=== PATIENT | female | born 1995 | race Caucasian/White ===

== ENCOUNTER 2017-09-07 11:58 | Emergency (ER) | payer MEDICAID ==
[~2017-09-07] VITALS: Ht 157.5 cm; Wt 106.6 kg
[2017-09-07 12:16] VITALS: BP 139/85
== END 2017-09-07 12:58 | disposition home or self-care (01) ==
LOC: ED 12:52
DX: S63.521A Sprain of radiocarpal joint of right wrist, initial encounter (principal); X58.XXXA Exposure to other specified factors, initial encounter; Y93.89 Activity, other specified; Y99.8 Other external cause status; Y92.009 Unspecified place in unspecified non-institutional (private) residence as the place of occurrence of the external cause
CPT/HCPCS: 99284

== ENCOUNTER 2017-10-10 15:52 | Emergency (ER) | payer SELFPAY ==
[~2017-10-10] VITALS: Ht 160 cm; Wt 106.8 kg
[2017-10-10 15:54] VITALS: BP 129/71
[2017-10-10 16:36] LABS: HCG UR SG 1.034 (1.003-1.030)
[2017-10-10 16:38] LABS: CULTURE INDICATED? YES; MICROSCOPIC INDICATED
== END 2017-10-10 17:19 | disposition home or self-care (01) ==
LOC: ED 16:07
DX: N30.90 Cystitis, unspecified without hematuria (principal)
CPT/HCPCS: 81001; 81025; 87086; 99284

== ENCOUNTER 2018-01-16 11:02 | Emergency (ER) | payer SELFPAY ==
[~2018-01-16] VITALS: Ht 157.5 cm; Wt 108.6 kg
[2018-01-16] MEDS ORDERED: ONE A DAY WOMANS (12:03)
[2018-01-16] MEDS ORDERED: ONDANSETRON ODT 4 MG ONE (12:17)
[2018-01-16] MEDS ORDERED: ONDANSETRON ODT 4 MG PO ONE (12:30)
[2018-01-16 12:34] LABS: BASOPHILS # (AUTO) 0.03 x10^3/uL (0-0.1); BASOPHILS % (AUTO) 0 % (0-1); EOSINOPHILS # (AUTO) 0.29 x10^3/uL (0-0.4); EOSINOPHILS % (AUTO) 4 % (1-7); LYMPHOCYTES % (AUTO) 19 % (22-44); MD NO; MEAN CORPUSCULAR HEMOGLOBIN 29.2 pg (27.0-34.8); MEAN CORPUSCULAR HGB CONC 33.9 g/dL (32.4-35.8); MEAN CORPUSCULAR VOLUME 86.3 fL (80-100); MONOCYTES # (AUTO) 0.54 x10^3/uL (0.2-0.8); MONOCYTES % (AUTO) 7 % (2-9); NEUTROPHILS # (AUTO) 5.11 x10^3/uL (1.8-6.8); NEUTROPHILS % (AUTO) 69 % (42-75); PLATELET COUNT 222 x10^3/uL (130-400); RED BLOOD COUNT 5.28 x10^6/uL (3.82-5.3); RED CELL DISTRIBUTION WIDTH 13.4 % (9.6-15.2)
[2018-01-16 12:35] LABS: MICROSCOPIC AUTO
[2018-01-16 12:52] LABS: CULTURE INDICATED? YES
[2018-01-16 13:01] VITALS: BP 125/78
== END 2018-01-16 13:39 | disposition home or self-care (01) ==
LOC: ED 11:30
DX: N30.01 Acute cystitis with hematuria (principal); M54.5 Low back pain
CPT/HCPCS: 36415; 81001; 84703; 85025; 87086; 99284; Q0162

== ENCOUNTER 2020-10-03 10:28 | Emergency (ER) | payer OTHER ==
[~2020-10-03] VITALS: Ht 157.5 cm; Wt 127.3 kg
[~2020-10-03 10:28] MED LIST: ONE A DAY WOMANS
[2020-10-03 10:44] VITALS: BP 150/90
[2020-10-03] MEDS ORDERED: KETOROLAC 30 MG/1 ML ONE (12:12)
[2020-10-03] MEDS ORDERED: KETOROLAC 30 MG/1 ML IM ONE (12:30)
[2020-10-03] MEDS ORDERED: ACETAMINOPHEN 500 MG TABLET ONE (13:08)
--- NOTE | 2020-10-03 13:18 | NUR ---
CONTACTED RAD REGARDING MISSING ANKLE IMAGE THAT SHOWS COMPLETED IN ORDER LIST. LAZARA IN RAD WILL LOOK INTO IT
[2020-10-03] MEDS ORDERED: ACETAMINOPHEN 500 MG TABLET PO ONE (13:30)
--- NOTE | 2020-10-03 13:51 | NUR ---
SECOND CONTACT WITH RADIOLOGY. MULTIPLE PEOPLE ATTEMPTING TO CORRECT PROBLEM
--- NOTE | 2020-10-03 14:00 | NUR ---
PT HEARD SCREAMING ON PHONE FROM DOWN THE HALLWAY THAT "THEY LOST MY X-RAY AND HAVEN'T GIVEN ME SHIT FOR MY BROKEN ANKLE EXCEPT TYLENOL. I COULD OF TAKEN TYLENOL AT HOME MY BROKEN ANKLE." THIS RN ATTEMPTS TO SPEAK WITH PT AND INFORM HER THAT I HAVE MADE MULTIPLE CALLS TO RADIOLOGY REGARDING THE FILM. PT STATES SHE JUST WANTS TO LEAVE AND HAS SOMEWHERE TO BE IN 2 HOURS. PROVIDER MADE AWARE. IMAGING RECIEVED AT THIS TIME AND PT UPDATED OF RESULTS. PT CRYING IN ROOM AND STATES "HOW IS IT NOT BROKE IT HURTS THIS BAD? PT UPDATED THAT THE PROVIDER WISHES TO [facility] AND PROVIDE CRUTCHES. PT REFUSES TO THIS RN.
[2020-10-03] MEDS ORDERED: OXYcodone IR 5MG TABLET ONE (14:06)
[2020-10-03] MEDS ORDERED: OXYcodone IR 5MG TABLET PO PRN (14:30)
[2020-10-03] MEDS ORDERED: OXYcodone 5 MG/5 ML ORAL.SOL UDC PO ONE (14:30)
== END 2020-10-03 14:15 | disposition home or self-care (01) ==
LOC: ED 11:35
DX: S93.402A Sprain of unspecified ligament of left ankle, initial encounter (principal); S93.602A Unspecified sprain of left foot, initial encounter; F17.200 Nicotine dependence, unspecified, uncomplicated; F12.10 Cannabis abuse, uncomplicated; Z72.9 Problem related to lifestyle, unspecified; F17.210 Nicotine dependence, cigarettes, uncomplicated; Y93.89 Activity, other specified; W01.0XXA Fall on same level from slipping, tripping and stumbling without subsequent striking against object, initial encounter; Y92.410 Unspecified street and highway as the place of occurrence of the external cause; Y99.8 Other external cause status
CPT/HCPCS: 73610; 73630; 96372; 99284; J1885